=== PATIENT | female | born 1965 | race African-American/Black ===

== ENCOUNTER 2022-05-01 10:55 | Emergency (ER) | payer BC, OTHER ==
[~2022-05-01] VITALS: Ht 160 cm; Wt 68.0 kg
[2022-05-01 10:55] VITALS: BP_SYST 165
[~2022-05-01 10:55] MED LIST: DIPH25CA83 PO; FAMO20TA8 PO; KETOTIFEN EACHEYE; LORA10TA2 PO
--- NOTE | 2022-05-01 11:08 | NUR ---
BROUGHT BACK TO BED #7 AND REPORT GIVEN TO GANGA
--- NOTE | 2022-05-01 11:11 | NUR ---
PT STATES THAT SHE HAS HAD RIGHT MID BACK PAIN, LIKE A MUSCLE PULL, FOR LAST 3 DAYS, TODAY SHE NOTICED A RASH. TAKING IBUPROFEN WITH MINIMAL RELIEF.
--- NOTE | 2022-05-01 11:14 | NUR ---
DR YOO AT BEDSIDE FOR EVALUATION
[2022-05-01] MEDS ORDERED: HYDR-3917 PO (11:24)
[2022-05-01] MEDS ORDERED: PRED20TA PO (11:24)
[2022-05-01] MEDS ORDERED: ACYC-133 PO (11:24)
[2022-05-01] MEDS ORDERED: IBUP-1969 PO (11:24)
--- NOTE | 2022-05-01 11:44 | NUR ---
Patient given written and verbal discharge instructions and verbalizes understanding. ER MD discussed with patient the results and treatment provided. Patient in stable condition. ID arm band removed. Rx of ACYCLOVIR, NORCO, IBUPROFE, PREDNISONE given. Patient educated on pain management and to follow up with PMD. Pain Scale . Opportunity for questions provided and answered. Medication side effect fact sheet provided.
[2022-05-01 11:45] VITALS: BP_SYST 147
[2022-05-01] MEDS ORDERED: KETOROLAC TROMETHAMINE 60 MG/2 ML VIAL IM ONE (11:45)
== END 2022-05-01 11:44 | disposition home or self-care (01) ==
LOC: SED 10:55
DX: B02.9 Zoster without complications (principal); M54.6 Pain in thoracic spine; Z79.899 Other long term (current) drug therapy
CPT/HCPCS: 99283; 96372; J1885